=== PATIENT | female | born 1985 ===

== ENCOUNTER 2022-03-13 13:50 | Emergency (ER) | payer BC ==
--- NOTE | 2022-03-13 15:01 | Emergency Department Report ---
ED General Adult HPI - General Chief complaint: High BP Stated complaint: BLOOD PRESSURE Source: patient Mode of arrival: Ambulatory Limitations: No Limitations - History of Present Illness Initial comments: 36-year-old female presents to the ED complaining hypertension. She states that while she was working today that she felt a little lightheaded. She stated that prior to that she only had eating and banana also feeling lightheaded. Patient states symptom has since resolved. She is concerned with blood pressure. Patient has no diagnosis of hypertension. States that she was seen by her primary care doctor and was told that her hypertension was was likely stress related from work to monitor her blood pressure. 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 Patient denies any chest pain ,shortness of breath ,abdominal pain, nausea or vomiting at present time. Patient is alert and oriented x3. No acute distress noted. No ill appearance noted. - Related Data Allergies Allergy/AdvReac Type Severity Reaction Status Date / Time No Known Allergies Allergy Unverified 03/13/22 13:53 ED Review of Systems ROS: Stated complaint: BLOOD PRESSURE Other details as noted in HPI Constitutional: denies: chills, fever Eyes: denies: eye pain, eye discharge, vision change ENT: denies: ear pain, throat pain Respiratory: denies: cough, shortness of breath, wheezing Cardiovascular: denies: chest pain, palpitations Endocrine: no symptoms reported Gastrointestinal: denies: abdominal pain, nausea, diarrhea Genitourinary: denies: urgency, dysuria, discharge Musculoskeletal: denies: back pain, joint swelling, arthralgia Skin: denies: rash, lesions Neurological: denies: headache, weakness, paresthesias Psychiatric: denies: anxiety, depression Hematological/Lymphatic: denies: easy bleeding, easy bruising ED Past Medical Hx - Past Medical History Previous Medical History?: No ED Physical Exam - General Limitations: No Limitations General appearance: alert, in no apparent distress - Head Head exam: Present: atraumatic, normocephalic - Eye Eye exam: Present: normal appearance - ENT ENT exam: Present: mucous membranes moist - Neck Neck exam: Present: normal inspection - Respiratory Respiratory exam: Present: normal lung sounds bilaterally. Absent: respiratory distress - Cardiovascular Cardiovascular Exam: Present: regular rate, normal rhythm. Absent: systolic murmur, diastolic murmur, rubs, gallop - GI/Abdominal GI/Abdominal exam: Present: soft, normal bowel sounds - Extremities Exam Extremities exam: Present: normal inspection - Back Exam Back exam: Present: normal inspection - Neurological Exam Neurological exam: Present: alert, oriented X3 - Psychiatric Psychiatric exam: Present: normal affect, normal mood - Skin Skin exam: Present: warm, dry, intact, normal color. Absent: rash ED Course Vital Signs 03/13/22 03/13/22 13:54 15:31 Temperature 98.5 F 98.5 F Pulse Rate 106 H 87 Respiratory 18 16 Rate Blood Pressure 140/92 Blood Pressure 132/94 [Left] O2 Sat by Pulse 98 97 Oximetry ED Medical Decision Making - Medical Decision Making 36-year-old female presents to the ED complaining hypertension. She states that while she was working today that she felt a little lightheaded. She stated that prior to that she only had eating and banana also feeling lightheaded. Patient states symptom has since resolved. She is concerned with blood pres sure. Patient has no diagnosis of hypertension. States that she was seen by her primary care doctor and was told that her hypertension was was likely stress related from work to monitor her blood pressure. 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 Patient denies any chest pain ,shortness of breath ,abdominal pain, nausea or vomiting at present time. Patient is alert and oriented x3. No acute distress noted. No ill appearance noted. Physical examination is unremarkable Rechecked the patient is resting quietly quietly and comfortable and feeling better. I discussed the results of diagnostic study, my clinical impression and the plan for further treatment with the patient. Patient agrees with plan and discharge at this present time. All question addressed. I have given the patient instruction regarding a diagnosis ,expectation ,follow- up and return precaution. I explained to the patient that emergent condition may arise and to return to the ED for new worsen and any new persisting condition. I have explained the importance of following up with the primary care physician or referral physician listed below has instructed. The patient verbalized understanding of discharge instruction. Critical care attestation.: If time is entered above; I have spent that time in minutes in the direct care of this critically ill patient, excluding procedure time. ED Disposition Clinical Impression: Hypertension Qualifiers: Hypertension type: unspecified Qualified Code(s): I10 - Essential (primary) hypertension Disposition: 01 HOME / SELF CARE / HOMELESS Is pt being admited?: No Does the pt Need Aspirin: No Condition: Stable Instructions: Preventing Hypertension, Hypertension (ED) Additional Instructions: Drink plenty of fluids make sure you are eating throughout your shift Return to the ED for any worsening symptom Referrals: KATHIA BALBUENA MD [Staff Physician] - 3-5 Days Forms: Work/School Release Form(ED) Time of Disposition: 15:05
[2022-03-13 15:32] VITALS: BP 132/94
== END 2022-03-13 15:33 | disposition home or self-care (01) ==
LOC: ED 13:50
DX: I10 Essential (primary) hypertension (principal)
CPT/HCPCS: 82962; 99282